=== PATIENT | male | born 1980 | race Caucasian/White ===

== ENCOUNTER 2017-09-17 16:30 | Inpatient (IN) | payer BC ==
[~2017-09-17] VITALS: Ht 185.4 cm; Wt 86.2 kg
[2017-09-17] MEDS ORDERED: ESCI10TA PO (16:40)
[2017-09-17 17:19] LABS: BASOPHILS # (AUTO) 0.1 K/uL (0.0-8.0); EOSINOPHILS # (AUTO) 0.1 K/uL (0.0-0.7); EOSINOPHILS % (AUTO) 2.1 % (0.0-7.0); LYMPHOCYTES # (AUTO) 1.6 K/uL (20.0-40.0); MEAN CORPUSCULAR HGB CONC 32 g/dL (32.5-36.3); MEAN CORPUSCULAR VOLUME 71.3 fL (73.0-96.2); MONOCYTES # (AUTO) 0.6 K/uL (2.0-10.0); NEUTROPHILS # (AUTO) 2.8 K/uL (1.8-8.9); NEUTROPHILS % (AUTO) 53.9 % (38.5-71.5); PLATELET COUNT (AUTO) 242 K/uL (152-348); WHITE BLOOD COUNT (AUTO) 5.3 K/uL (3.6-10.2)
[2017-09-17 17:26] LABS: POTASSIUM 3.7 mmol/L (3.5-5.1)
[2017-09-17 17:27] LABS: RED BLOOD CELL COUNT(AUTO) 2.29 MIL/uL (4.06-5.63)
[2017-09-17 17:30] LABS: HEMATOCRIT 16.3 % (36.7-47.1); HEMOGLOBIN 5.2 g/dL (12.5-16.3)
[2017-09-17 17:37] LABS: BILIRUBIN,DIRECT 0.1 mg/dL (0.0-0.2); BILIRUBIN,TOTAL 0.3 mg/dL (0.2-1.0); TOTAL PROTEIN, SERUM 6.1 g/dL (6.4-8.2)
--- NOTE | 2017-09-17 17:47 | NUR ---
was informed regarding Hemoglobin 5.2,Hematocrit 16.3.
[2017-09-17 17:56] LABS: BAND % (MANUAL) 2 % (0-10); EOSINOPHILS % (MANUAL) 1 % (0-8); LYMPHOCYTES % (MANUAL) 32 % (20-40); MONOCYTES % (MANUAL) 11 % (2-10); NEUTROPHILS % (MANUAL) 54 % (42-75)
[2017-09-17] MEDS ORDERED: TEMAZEPAM 15 MG CAPSULE PO PRN (18:30)
[2017-09-17] MEDS ORDERED: MAGNESIUM HYDROXIDE 30 ML LIQUID UDC PO PRN (18:30)
[2017-09-17] MEDS ORDERED: HYDROCODONE/APAP 5-325MG TABLET PO PRN (18:30)
[2017-09-17] MEDS ORDERED: ACETAMINOPHEN 325 MG TABLET PO PRN (18:30)
[2017-09-17] MEDS: PANTOPRAZOLE SODIUM IV 40 MG in IV DEXTROSE 5% 100 ML IV SCH (18:42)
--- NOTE | 2017-09-17 19:14 | NUR ---
Pt was seen by GI .Pt remains awake,alert.No active GI bleeding noted.
[2017-09-17] MEDS ORDERED: GOLYTELY 4000 ML BOTTLE PO ONE (19:15)
[2017-09-17 20:00] VITALS: BP 123/74
--- NOTE | 2017-09-17 20:16 | NUR ---
no active bleeding noted .tolerated apple juice ,[id number].aware about the EGD for am . NO SOB .transfered to [facility]IA [employer] .report given to mason RYAN using SBAR..
--- NOTE | 2017-09-17 21:00 | NUR ---
Received pt in unit via [employer] AAO x 4 with no s/s of acute distress noted at this time. Vital signs WNL. Unit orientation provided. No active bleeding noted at this time. Pertinent assessments done. Bowel prep and golytely initiated. Safety measures provided. Will continue to monitor closely and carry out plan of care.
[2017-09-17] MEDS ORDERED: HYDROCODONE/APAP 10-325 MG TABLET PO PRN (21:45)
[2017-09-18] VITALS (24 sets, daily range): BP systolic 109–134; BP diastolic 55–80
--- NOTE | 2017-09-18 00:15 | NUR ---
PT IS NOTED TO HAVE FINISHED AND TOLERATED GOLYTELY AT THIS TIME. NOTED TO BE CLEARING BOWELS. NO S/S OF ACUTE DISTRESS. WILL CONTINUE TO MONITOR CLOSELY.
--- NOTE | 2017-09-18 00:30 | NUR ---
Blood transfusion initiated. No adverse reactions noted. Vital signs WNL. Will continue to monitor closely.
[2017-09-18] MEDS: PANTOPRAZOLE SODIUM IV 40 MG in IV DEXTROSE 5% 100 ML IV SCH (01:00)
[2017-09-18] MEDS: ONDANSETRON 4 MG/2 ML VIAL IV PRN ×2 (01:23→02:10)
--- NOTE | 2017-09-18 06:30 | NUR ---
2 PRBC's transfused. Consent form signed for EGD/COLONOSCOPY. Pt made aware of plan of care. Will endorse accordingly.
[2017-09-18 06:58] LABS: *BILIRUBIN,URIN NEGATIVE (NEGATIVE); *BLOOD, URINE NEGATIVE (NEGATIVE); *CLARITY,URINE CLEAR (CLEAR); *COLOR,URINE YELLOW (YELLOW); *KETONES,URINE NEGATIVE (NEGATIVE); *PROTEIN,URINE NEGATIVE (NEGATIVE); *UROBILINOGEN,URINE 0.2 E.U./dl (NORMAL); LEUKOCYTE ESTERASE ,URINE NEGATIVE (NEGATIVE); NITRITE, URINE NEGATIVE (NEGATIVE); PH,URINE 5.5 (5.0-8.0); UGLUCOSE NEGATIVE (NEGATIVE)
[2017-09-18 07:10] LABS: CREATININE 1.1 mg/dL (0.6-1.3); MAGNESIUM 1.9 mg/dL (1.8-2.4); PHOSPHOROUS 3.4 mg/dL (2.5-4.9); POTASSIUM 4.1 mmol/L (3.5-5.1)
[2017-09-18 07:13] LABS: BACTERIA,URINE NONE SEEN /HPF (NONE SEEN); RBC,URINE 0-3 /HPF (0-3); SQUAMOUS EPITHELIAL CELL,UR FEW /HPF (NONE SEEN)
[2017-09-18 07:19] LABS: BASOPHILS % (AUTO) 0.7 % (0.0-2.0); EOSINOPHILS # (AUTO) 0.1 K/uL (0.0-0.7); EOSINOPHILS % (AUTO) 1.2 % (0.0-7.0); LYMPHOCYTES # (AUTO) 2.1 K/uL (20.0-40.0); LYMPHOCYTES % (AUTO) 28.6 % (20.5-51.5); MEAN CORPUSCULAR HEMOGLOBIN 25.2 uug (23.8-33.4); MEAN CORPUSCULAR HGB CONC 34 g/dL (32.5-36.3); MEAN CORPUSCULAR VOLUME 74.5 fL (73.0-96.2); MONOCYTES # (AUTO) 0.7 K/uL (2.0-10.0); NEUTROPHILS # (AUTO) 4.4 K/uL (1.8-8.9); NEUTROPHILS % (AUTO) 59.5 % (38.5-71.5); PLATELET COUNT (AUTO) 220 K/uL (152-348)
[2017-09-18 07:31] LABS: WHITE BLOOD COUNT (AUTO) 7.4 K/uL (3.6-10.2)
[2017-09-18 07:33] LABS: HEMOGLOBIN 6.8 g/dL (12.5-16.3)
[2017-09-18 07:34] LABS: HEMATOCRIT 20.1 % (36.7-47.1)
--- NOTE | 2017-09-18 08:00 | NUR ---
Received lab result of Hgb 6.8 and Hct of 20.1 after 2u of PRBC last night. [employer] Vinh Lomeli was in the unit and notified him of the result. Received new orders to transfuse 2unit of PRBC noted and carried out. Patient made aware and agreed with POC. Lab was called.
[2017-09-18] MEDS ORDERED: IV NS 1000 ML 1,000 ML IV PRN (08:15)
--- NOTE | 2017-09-18 08:45 | NUR ---
Went down to Lab to fiber picker first unit of PRBC to be transfused
[2017-09-18] MEDS ORDERED: PANTOPRAZOLE SODIUM 40 MG VIAL IV SCH (09:00)
--- NOTE | 2017-09-18 09:02 | NUR ---
First unit of PRBC started transfusing. Vitals WNL. No s/s of adverse reactions noted. patient is awake, alert and oriented x4. Denies any SOB or chest pain at this time. Will continue to monitor.
--- NOTE | 2017-09-18 09:50 | NUR ---
Patient went off the unit to GI Lab for EGD and Colonoscopy, in stable condition. PRBC running at this time.
[2017-09-18] MEDS ORDERED: SUCCINYLCHOLINE CHLORIDE 200 MG/10 ML VIAL ONE (10:03)
[2017-09-18] MEDS ORDERED: PROPOFOL 200 MG/20 ML BOTTLE IV ONE (10:05)
[2017-09-18] MEDS ORDERED: LIDOCAINE HCL-MPF 1% 5 ML VIAL MC ONE (10:05)
[2017-09-18 10:40] LABS: EOSINOPHILS % (MANUAL) 1 % (0-8); LYMPHOCYTES % (MANUAL) 30 % (20-40); MONOCYTES % (MANUAL) 6 % (2-10); NEUTROPHILS % (MANUAL) 63 % (42-75)
[2017-09-18] MEDS ORDERED: MIRALAX 17 GM POWD.PACK PO SCH ×2 (10:45→21:00)
[2017-09-18] MEDS ORDERED: HYDROCORTISONE RECTAL SUPP 25 MG EACH RC SCH (10:45)
--- NOTE | 2017-09-18 11:39 | NUR ---
Patient came back from surgery in stable condition. patient is awake, alert and oriented x4, in no acute distress. Denies any pain or SOB at this time. First unit of PRBC still infusing. No A/r noted. Vitals WNL. Afebrile. Denies any N/V at this time. Will continue to monitor.
--- NOTE | 2017-09-18 12:59 | NUR ---
FIRST UNIT OF BLOOD COMPLETED WITH NO SS OF REACTION. SEEN BY HOSPITALIST WITH DC ORDER
--- NOTE | 2017-09-18 13:49 | NUR ---
SECOND UNIT OF BLOOD STARTED CLOSELY WATCH FOR REACTION
--- NOTE | 2017-09-18 14:26 | NUR ---
NO BLOOD TRANSFUSION REACTION NOTED, CONTINUE WITH BLOOD TRANSFUSION
--- NOTE | 2017-09-18 16:12 | NUR ---
End of blood transfusion, No A/R noted. Denies any chest pain or SOB. Vitals WNL. Patient is awake, alert and oriented x4. No acute distress. Patient scheduled for discharge home today. Discharge instructions were given, signed by patient. New prescriptions given to the patient. Pharmacist went in and spoke with the patient, health education provided regarding lits of medications, able to verbalize understanding. Instructed patient to follow up with PCP in one week. Left the hospital in stable condition. Accompanied by family member
[2017-09-21 15:11] LABS: *ANTI-SCLERODERMA-70 AB 0.3 AI (0.0-0.9); *SJOGREN'S ANTI-SS-A <0.2 AI (0.0-0.9); *SJOGREN'S ANTI-SS-B <0.2 AI (0.0-0.9); *SMITH ANTIBODIES <0.2 AI (0.0-0.9); ANTI-DNA(DS) AB, QN 2 IU/mL (0-9)
== END 2017-09-18 16:15 | disposition home or self-care (01) | DRG 393 ==
LOC: ER 16:34 → TELE 20:02
PROVIDERS: ADMIT Nurse Practitioner Acute Care; ATTEND Nurse Practitioner Acute Care
PROC: 0DB68ZX Excision of Stomach, Via Natural or Artificial Opening Endoscopic, Diagnostic (ICD-10-PCS; principal; 2017-09-18 10:05)
PROC: 0DBP8ZX Excision of Rectum, Via Natural or Artificial Opening Endoscopic, Diagnostic (ICD-10-PCS; principal; 2017-09-18 10:05)
PROC: 0DBN8ZX Excision of Sigmoid Colon, Via Natural or Artificial Opening Endoscopic, Diagnostic (ICD-10-PCS; principal; 2017-09-18 10:05)
PROC: 30233N1 Transfusion of Nonautologous Red Blood Cells into Peripheral Vein, Percutaneous Approach (ICD-10-PCS; principal; 2017-09-18 10:05)
DX: K64.8 Other hemorrhoids (principal); K29.71 Gastritis, unspecified, with bleeding; E44.1 Mild protein-calorie malnutrition; D50.0 Iron deficiency anemia secondary to blood loss (chronic); F17.201 Nicotine dependence, unspecified, in remission; F31.9 Bipolar disorder, unspecified; K64.4 Residual hemorrhoidal skin tags; K52.9 Noninfective gastroenteritis and colitis, unspecified; Z68.25 Body mass index [BMI] 25.0-25.9, adult; Z82.49 Family history of ischemic heart disease and other diseases of the circulatory system; Z79.899 Other long term (current) drug therapy; K29.80 Duodenitis without bleeding; R51 Headache; Z79.1 Long term (current) use of non-steroidal anti-inflammatories (NSAID)
CPT/HCPCS: 36415; 70030-TC; 71045; 82746; 83520; 83550; 83690; 83735; 84100; 85025; 85730; 86038; 86256; 86850; 86900; 86901; 86920; 88342; 93005; A4217; A4663; C9113; J0330; J2405; J3490; J7030; J7040; J7050; J7060; P9016-BL; P9021